=== PATIENT | male | born 1970 | race Caucasian/White ===

== ENCOUNTER 2018-09-06 15:07 | Emergency (ER) | payer OTHER ==
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
[2018-09-06 15:23] VITALS: BP 129/79; PULSE 83; TEMP 98.1; BMI 25.1
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
== END 2018-09-06 15:45 | disposition home or self-care (01) ==
LOC: JER 15:07
DX: M54.2 Cervicalgia (principal); M54.5 Low back pain; V69.49XA Driver of heavy transport vehicle injured in collision with other motor vehicles in traffic accident, initial encounter; Y92.488 Other paved roadways as the place of occurrence of the external cause; Y93.89 Activity, other specified; Y99.8 Other external cause status
CPT/HCPCS: 99282-25

== ENCOUNTER 2022-06-27 11:09 | Emergency (ER) | payer OTHER ==
[2022-06-27 11:20] VITALS: BP 138/89; PULSE 88; RESP 18; TEMP 99; BMI 22.3
[2022-06-27] MEDS ORDERED: ACETAMINOPHEN 500 MG TABLET (FP) PO ONE (11:28)
[2022-06-27] MEDS ORDERED: ACETAMINOPHEN 500 MG TABLET (FP) ONE (11:32)
== END 2022-06-27 11:46 | disposition home or self-care (01) ==
LOC: FER 11:09
DX: H92.01 Otalgia, right ear (principal); R68.84 Jaw pain; H66.91 Otitis media, unspecified, right ear
CPT/HCPCS: 99283-25